=== PATIENT | female | born 1985 ===

== ENCOUNTER 2019-03-08 11:43 | Emergency (ER) | payer MEDICAID ==
[~2019-03-08] VITALS: Ht 157.5 cm; Wt 91.0 kg
--- NOTE | 2019-03-08 13:14 | NUR ---
TASK RN: PT AMBULATORY TO ROOM 19 W/ C/O TOOTHACHE. PT STATES SHE HAS BEEN ON PCN X 1 WK W/ NO RELIEF. STATES SHE HAS A "HOLE IN MY TOOTH. I CAN'T SEE A DENTIST BECAUSE I HAVE [place] INSURANCE BUT I CAN PAY TO GET IT OUT ON THE FIRST OF THE MONTH". PT ALSO HERE FOR PSYCH STATES SHE HEARS KIDS CRYING. DENIES SI/HI. PT REQUESTING TO SPEAK W/ PSYCHIATRIST. KEY, PSYCH JOINT RUNNER NOTIFIED OF NEED FOR CONSULT. PT RESTING ON GURNEY. NADN. ART. WARM BLANKET PROVIDED. Addendum: 03/08/19 at 1431 by [facility] Patient/Caregiver given discharge instructions and they have confirmed that they understand the instructions. Patient ambulatory with steady gait.
--- NOTE | 2019-03-08 13:20 | NUR ---
TASK RN: HOLLIE DON AT BEDSIDE. MADE AWARE PSYCH SENIOR APPLICATIONS ARCHITECT AWARE OF PT.
--- NOTE | 2019-03-08 13:35 | NUR ---
TASK RN: DAYANA MACKEY CLINICAL LAB ASSISTANT AT BEDSIDE.
--- NOTE | 2019-03-08 13:58 | NUR ---
TASK RN: YELLOW SLIP SENT TO PHARMACY FOR MEDS.
[2019-03-08] MEDS ORDERED: ARIPIPRAZOLE 400 MG INJ NC IM ONE (14:00)
[2019-03-08] MEDS ORDERED: ACETAMINOPHEN 325 MG TABLET PO ONE (14:00)
[2019-03-08] MEDS ORDERED: ARIPIPRAZOLE 10 MG TABLET PO ONE (14:00)
[2019-03-08] MEDS ORDERED: ARIPIPRAZOLE 10 MG TABLET ONE (14:19)
[2019-03-08] MEDS ORDERED: ACETAMINOPHEN 325 MG TABLET ONE (14:19)
[2019-03-08 14:25] VITALS: BP 116/71
--- NOTE | 2019-03-08 14:25 | NUR ---
PT MEDICATED PER MAR, NAD NOTED, PT TO DC
== END 2019-03-08 14:33 | disposition home or self-care (01) ==
LOC: ED 14:27
DX: K08.89 Other specified disorders of teeth and supporting structures (principal)
CPT/HCPCS: 96372; 99283